=== PATIENT | female | born 1930 ===

== ENCOUNTER → 2016-07-22 | Outpatient (CLI) | payer BC, OTHER ==
[2016-07-22 18:15] LABS: INR 2.8 (0.9-1.1); PROTHROMBIN TIME (PATIENT) 31.2 SECONDS (9.0-12.0)
[2016-07-22 18:20] LABS: BASO % 0.3 %; BASO ABS # 0.02 K/uL (0-0.2); COMPLETE YES; EOS % 1.7 %; HEMATOCRIT 37.8 % (37-47); IG% 0.5 %; LYMPH % 13.2 %; MEAN CELL VOLUME 99.2 fL (80-100); MEAN CORPUSCULAR HEMOGLOBIN 32.5 pg (25-34); MEAN CORPUSCULAR HGB CONC 32.8 g/dl (32-36); MONO % 11.9 %; NEUT % 72.4 %; PLATELET COUNT 277 K/uL (130-400); RED BLOOD COUNT 3.81 M/uL (4.2-5.4); WHITE BLOOD COUNT 6.06 K/uL (4.8-10.8)
[2016-07-22 18:32] LABS: BLOOD UREA NITROGEN 22 mg/dl (7-18); CALCIUM 8.9 mg/dl (8.5-10.1); CARBON DIOXIDE 28 mmol/L (21-32); CHLORIDE 101 mmol/L (98-107); GLUCOSE 82 mg/dl (70-99); PHOSPHORUS 3.3 mg/dl (2.5-4.9); POTASSIUM 4.5 mmol/L (3.5-5.1); SODIUM 136 mmol/L (136-145)
== END | disposition home or self-care (01) ==
LOC: C.LABMFLN 07:44
PROVIDERS: ATTEND Family Medicine
DX: I69.30 Unspecified sequelae of cerebral infarction (principal); I10 Essential (primary) hypertension